=== PATIENT | male | born 1960 | race Caucasian/White ===

== ENCOUNTER → 2021-08-22 | Outpatient (CLI) | payer OTHER ==
--- NOTE | 2021-08-22 13:12 | Diagnostic Imaging Report ---
HISTORY: Puncture wound to the medial left forearm. Trauma with debris. TECHNIQUE: Two views of the left forearm. COMPARISON: None. FINDINGS: No acute fracture or dislocation is seen in the left forearm. Alignment is normal and joint spaces are preserved. No soft tissue gas is seen. There is a tiny linear hyperdensity measuring about 1 mm in length at the soft tissues lateral to the distal radius on the frontal view only. This could represent a tiny foreign body versus artifact or overlying debris. IMPRESSION: 1. No acute osseous abnormality in the left forearm. 2. Questionable 1 mm foreign body in the soft tissues of the distal lateral left forearm. Dictated by: Dictated on workstation # [id number]
== END ==
LOC: RAD 12:20
PROVIDERS: ATTEND Nurse Practitioner Family
DX: S51.832A Puncture wound without foreign body of left forearm, initial encounter (principal); X58.XXXA Exposure to other specified factors, initial encounter
CPT/HCPCS: 73090